=== PATIENT | female | born 1970 ===

== ENCOUNTER 2020-11-14 03:57 | Day surgery (SDC) | payer OTHER ==
[2020-11-12 17:11] VITALS: BMI 26.0
[~2020-11-14 03:57] MED LIST: BUPIVACAINE HCL/PF 0.5% (5MG/ML) 10 ML VIAL IJ ONE; IOHEXOL 180 MG/1 ML ML IJ ONE; LIDOCAINE 1% P/F 10 MG/ML VIAL INF ONE
[2020-11-14 06:38] VITALS: TEMP 96.9
[2020-11-14] MEDS ORDERED: LIDOCAINE HCL/PF 1% SDV 5ML VIAL ONE (07:13)
[2020-11-14 08:37] VITALS: BP 150/88; PULSE 75
== END 2020-11-14 08:50 | disposition home or self-care (01) ==
LOC: JASU-SURG 03:57
PROVIDERS: ATTEND Pain Medicine Pain Medicine
DX: Z53.8 Procedure and treatment not carried out for other reasons (principal)

== ENCOUNTER 2020-11-21 04:20 | Day surgery (SDC) | payer OTHER ==
[2020-11-20 11:01] VITALS: BMI 26.0
[2020-11-21] MEDS ORDERED: IOHEXOL 300 MG/ML INFUS..BTL IV ONE (12:21)
[2020-11-21] MEDS ORDERED: IOHEXOL 180 MG/1 ML ML IJ ONE (12:21)
[2020-11-21] MEDS ORDERED: LIDOCAINE 1% P/F 10 MG/ML VIAL PNB ONE (12:21)
[2020-11-21 16:19] VITALS: BP 130/83; PULSE 84; TEMP 98.8
== END 2020-11-21 14:30 | disposition home or self-care (01) ==
LOC: JASU-SURG 04:20
PROVIDERS: ATTEND Pain Medicine Pain Medicine
PROC: BR14YZZ Fluoroscopy of Cervical Facet Joint(s) using Other Contrast (ICD-10-PCS; 2020-11-21)
PROC: 3E0T3BZ Introduction of Anesthetic Agent into Peripheral Nerves and Plexi, Percutaneous Approach (ICD-10-PCS; principal; 2020-11-21 12:30)
DX: M47.812 Spondylosis without myelopathy or radiculopathy, cervical region (principal)
CPT/HCPCS: 76000-TC-FY

== ENCOUNTER 2020-12-12 04:27 | Day surgery (SDC) | payer OTHER ==
[2020-12-11 17:14] VITALS: BMI 25.4
[~2020-12-12 04:27] MED LIST changes: -LIDOCAINE 1% P/F 10 MG/ML VIAL INF ONE
[2020-12-12 13:25] VITALS: TEMP 97.9
[2020-12-12] MEDS ORDERED: DEXAMETHASONE SOD PHOSPHATE/PF 10 MG/ML SDV ONE (13:50)
[2020-12-12] MEDS ORDERED: BUPIVACAINE HCL/PF 0.5% (5MG/ML) 10 ML VIAL ONE (14:11)
[2020-12-12] MEDS ORDERED: LIDOCAINE HCL 1% PRESERVATIVE FREE - 30ML VIAL IJ ONE ×2 (14:13→14:15)
[2020-12-12] MEDS ORDERED: IOHEXOL 180 MG/1 ML ML IJ ONE (14:18)
[2020-12-12] MEDS ORDERED: BUPIVACAINE HCL/PF 0.5% (5MG/ML) 10 ML VIAL IJ ONE (14:19)
[2020-12-12 14:45] VITALS: BP 118/72; PULSE 61
== END 2020-12-12 15:00 | disposition home or self-care (01) ==
LOC: JASU-SURG 04:27
PROVIDERS: ATTEND Pain Medicine Pain Medicine
PROC: BR14YZZ Fluoroscopy of Cervical Facet Joint(s) using Other Contrast (ICD-10-PCS; 2020-12-12)
PROC: 3E0T3BZ Introduction of Anesthetic Agent into Peripheral Nerves and Plexi, Percutaneous Approach (ICD-10-PCS; principal; 2020-12-12 14:00)
DX: M47.812 Spondylosis without myelopathy or radiculopathy, cervical region (principal)
CPT/HCPCS: 76000-TC-FY

== ENCOUNTER 2021-01-02 04:22 | Day surgery (SDC) | payer OTHER ==
[2021-01-01 13:36] VITALS: BMI 26.4
[2021-01-02] MEDS ORDERED: LIDOCAINE HCL/PF 1% SDV 5ML VIAL ONE (07:15)
[2021-01-02] MEDS ORDERED: BUPIVACAINE HCL/PF 0.75% 10 ML VIAL ONE (07:15)
[2021-01-02] MEDS ORDERED: BUPIVACAINE HCL/PF 0.75% 10 ML VIAL NR ONE (07:56)
[2021-01-02] MEDS ORDERED: LIDOCAINE HCL 1% PRESERVATIVE FREE - 30ML VIAL IJ ONE (07:57)
[2021-01-02] MEDS ORDERED: IOHEXOL 180 MG/1 ML ML IJ ONE (08:02)
[2021-01-02 08:28] VITALS: BP 122/83; PULSE 58; TEMP 97.7
== END 2021-01-02 08:44 | disposition home or self-care (01) ==
LOC: JASU-SURG 04:22
PROVIDERS: ATTEND Pain Medicine Pain Medicine
PROC: BR16YZZ Fluoroscopy of Lumbar Facet Joint(s) using Other Contrast (ICD-10-PCS; 2021-01-02)
PROC: 3E0T3BZ Introduction of Anesthetic Agent into Peripheral Nerves and Plexi, Percutaneous Approach (ICD-10-PCS; principal; 2021-01-02 07:30)
DX: M47.816 Spondylosis without myelopathy or radiculopathy, lumbar region (principal)
CPT/HCPCS: 76000-TC-FY

== ENCOUNTER 2021-05-01 04:12 | Day surgery (SDC) | payer OTHER ==
[2021-04-28 17:25] VITALS: BMI 26.4
[~2021-05-01 04:12] MED LIST changes: -BUPIVACAINE HCL/PF 0.5% (5MG/ML) 10 ML VIAL IJ ONE; +BUPIVACAINE HCL/PF 0.75% 10 ML VIAL NR ONE; +LIDOCAINE HCL 1% PRESERVATIVE FREE - 30ML VIAL IJ ONE
[2021-05-01] MEDS ORDERED: LIDOCAINE HCL 1% PRESERVATIVE FREE - 30ML VIAL IJ ONE (11:14)
[2021-05-01] MEDS ORDERED: IOHEXOL 180 MG/1 ML ML IJ ONE (11:19)
[2021-05-01] MEDS ORDERED: BUPIVACAINE HCL/PF 0.75% 10 ML VIAL NR ONE (11:20)
[2021-05-01 12:50] VITALS: TEMP 98.3
[2021-05-01 12:54] VITALS: BP 130/80; PULSE 80
== END 2021-05-01 13:00 | disposition home or self-care (01) ==
LOC: JASU-SURG 04:12
PROVIDERS: ATTEND Pain Medicine Pain Medicine
PROC: BR16YZZ Fluoroscopy of Lumbar Facet Joint(s) using Other Contrast (ICD-10-PCS; 2021-05-01)
PROC: 3E0T3BZ Introduction of Anesthetic Agent into Peripheral Nerves and Plexi, Percutaneous Approach (ICD-10-PCS; principal; 2021-05-01 10:30)
DX: M47.816 Spondylosis without myelopathy or radiculopathy, lumbar region (principal)
CPT/HCPCS: 76000-TC-FY